=== PATIENT | male | born 1965 | race African-American/Black ===

== ENCOUNTER 2016-09-06 13:06 | Emergency (ER) | payer OTHER ==
[~2016-09-06] VITALS: Ht 182.9 cm; Wt 121.0 kg
[~2016-09-06 13:06] MED LIST: BENICAR40 MG PO; CARDIZEM LA360 MG PO; FLEXERIL5 MG PO; GLUCOPHAGE500 MG PO; LANTUS (UNITS)1 UNIT SC; LORTAB 7.5/51 TABLET PO; MOBIC7.5 MG PO; NAPROSYN500 MG PO; NEURONTIN800 MG PO; NORCO 5/3251 TABLET PO; NOVOLOG (UNITS1 UNIT SC; ROBAXIN750 MG PO; SIMVASTATIN40 M1 PO; VOLTAREN75 MG PO; ZANAFLEX4 M1 PO
[2016-09-06 13:15] VITALS: BP 120/76
[2016-09-06 15:16] LABS: HEMATOCRIT 38.3 % (38.0-50.0); MCH 28.1 PG (29.0-34.0); MCHC 33.4 G/DL (30.0-36.0); MCV 84.2 FL (86-99); MEAN PLAT.VOLUME 9.8 uM^3 (9.0-12.4); PLATELET COUNT 313 K/uL (156-360); RBC DIS.WIDTH-SD 40.1 % (39-53); RED BLOOD COUNT 4.55 M/uL (4.00-5.50); WHITE BLOOD COUNT 11.9 K/uL (4.1-10.2)
[2016-09-06 15:25] LABS: CHLORIDE 104 mEq/L (99-109); POTASSIUM 3.9 mEq/L (3.7-5.4); SODIUM 137 mEq/L (136-147)
[2016-09-06 15:27] LABS: GLUCOSE 210 mg/dL (70-99)
[2016-09-06 15:29] LABS: ANION GAP 11 MEQ/L (2-14)
[2016-09-06 15:31] LABS: GFR ESTIMATE (CALCULATED) 46 mL/min/
[2016-09-06 15:32] LABS: UREA NITROGEN (BUN) 25 mg/dL (9-23)
[2016-09-06] MEDS ORDERED: NORCO 5/3251 TABLET PO (16:07)
[2016-09-06] MEDS ORDERED: CLINDAMYCIN HC300 MG PO (16:07)
[2016-09-06] MEDS ORDERED: NAPROSYN500 MG PO (16:07)
== END 2016-09-06 16:40 | disposition home or self-care (01) ==
LOC: EME 13:06
PROVIDERS: Nurse Practitioner Family
DX: K04.7 Periapical abscess without sinus (principal); L03.211 Cellulitis of face; E11.9 Type 2 diabetes mellitus without complications
CPT/HCPCS: 70486; 80048; 85027; 99281; 99283